=== PATIENT | female | born 2005 | race Caucasian/White ===

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

== ENCOUNTER 2024-01-12 08:12 | Outpatient (RCR) | payer BC, SELFPAY ==
[2024-01-12] MEDS: RHO(D) IMMUNE GLOBULIN 300 MCG/2 ML SYRINGE IM (12:27)
== END 2024-04-11 23:59 | disposition home or self-care (01) ==
LOC: ANHLAB 08:12
PROVIDERS: PCP Internal Medicine; Visit Provider Obstetrics & Gynecology
DX: O36.0130 Maternal care for anti-D [Rh] antibodies, third trimester, not applicable or unspecified (principal); Z29.13 Encounter for prophylactic Rho(D) immune globulin; Z3A.00 Weeks of gestation of pregnancy not specified
CPT/HCPCS: 36415; 85461; 86850; 86900; 86901; 90384; 96372; J2790

== ENCOUNTER 2024-02-21 10:32 | Outpatient (CLI) | payer BC, SELFPAY ==
[2024-02-21 11:10] VITALS: BP 124/68; PULSE 117; RESP 18; TEMP 36.9
[2024-02-21 11:15] VITALS: BP 124/68; PULSE 117
--- NOTE | 2024-02-21 11:29 | PC.NURSE ---
Chay Cates [facility] informed of this 23 wk pt with c/o leakage of fluid at 0800 this am. Pt did state she has had intercourse in the last 24 hrs- didn't ask her to be any more specific with the time. ROM plus was negative. FHT's reactive with 10 beat accels at 23 wks. No contractions. No vaginal bleeding. OK to discharge to home.
[2024-02-21 11:44] LABS: OBXCEM ROM Plus Negative (Negative)
== END 2024-02-21 11:32 | disposition home or self-care (01) ==
LOC: ANHOBOP 11:28 → ANHOBPP 11:29
PROVIDERS: Advanced Practice Midwife; PCP Internal Medicine; Visit Provider Obstetrics & Gynecology
DX: O42.90 Premature rupture of membranes, unspecified as to length of time between rupture and onset of labor, unspecified weeks of gestation (principal); Z3A.00 Weeks of gestation of pregnancy not specified
CPT/HCPCS: 59025; 84112; 99199

== ENCOUNTER 2024-03-30 13:17 | Observation (INO) | payer BC, SELFPAY ==
--- NOTE | ~2024-03-30 | US_ITS ---
EXAMINATION: US OB limited DATE: 03/30/2024 14:40 INDICATION: Placenta check . TECHNIQUE: Real-time ultrasound of the pelvis was performed. COMPARISON: None. FINDINGS: There is a single living fetus in vertex presentation, longitudinal lie. The placenta is posterior, 10.3 cm from the cervix. heart rate is 161 bpm. The deepest vertical amniotic fluid pocket mackenzie urement is 6.1 cm. Biophysical profile performed by the technologist: breathing (30 sec sustained breathing in 30 minutes): 2 out of 2. movement (3 gross body movements in 30 minutes: 2 out of 2. tone (one episode of wtalvlc-cayttfvus-xkkimgc limb movement): 2 out of 2. Amniotic fluid pocket (2 cm): 2 out of 2. Total score: 8 out of 8. IMPRESSION: Single living fetus in vertex presentation. heart rate 161 bpm. Placenta is well distant from the cervix. DVP 6.1 cm. Reviewed, dictated and finalized at location K. ICULTURIST
[2024-03-30 13:42] VITALS: BP 117/78; PULSE 99
[2024-03-30 13:46] VITALS: BP 104/78; PULSE 86
[2024-03-30 14:01] VITALS: BP 121/70; PULSE 86
[2024-03-30 14:07] VITALS: BMI 25.0
--- NOTE | 2024-03-30 14:08 | LDADM ---
This patient, Jennifer Marie, was admitted to OB Post 115 on 03/30/24 at 13:17. Plans for labor, pain management and were discussed with patient. Patient/family oriented to hospital policies and general routines including ID bracelet, bed and alarms, visiting hours, pain management, procedures, bathroom and other care routines, personal items, smoking policy, room service/diet and guest tray routines, infant security routines, and visiting hours. Patient/Family are encouraged to report perceived risks to care and to ask questions if they do not understand what they are told or what they should do. See OBIX for further documentation.
[2024-03-30 14:11] VITALS: BP 117/78; PULSE 86
--- NOTE | 2024-03-30 14:55 | PC.NURSE ---
Patient admitted for observation with complaints of vaginal bleeding since 1000 this morning. Patient states she had a small amount of bright red blood when she wiped after voiding but did not notice any blood while voiding. Patient denies any cramping or pain. MD notified of patient's complaint and verbal orders were received to obtain an NST, ultrasound for placenta check, and cervical exam. NST reactive and cervix was found to be closed. No blood on glove after cervical exam and patient states she has not had anymore since this morning. Patient state she did have intercourse last night. Patient is up on her feet most of the day at work as well. Waiting ultrasound results to notify provider.
--- NOTE | 2024-03-30 15:04 | PC.NURSE ---
Spoke with Dr. Pizarro at 1504 on telephone. Notified MD of reactive tracing, ultrasound findings, and cervical exam. Notified MD patient has not had anymore bleeding since the original smear this morning. MD gave verbal orders to discharge patient to home. Patient agrees with plan of care and has no questions at this time.
--- NOTE | 2024-04-29 18:13 | PM.OBTRLD ---
OB - Triage/Final Diagnosis Visit Information Comments/Additional reasons for admission: I have assessed the risk for this patient, Jennifer Marie, and determined that she would benefit from observation care. Final Diagnosis (1) Vaginal bleeding during : Code(s): O46.90 - Antepartum hemorrhage, unspecified, unspecified trimester Status: Acute
== END 2024-03-30 15:12 | disposition home or self-care (01) ==
PROVIDERS: Admitting Provider Obstetrics & Gynecology; PCP Internal Medicine; Visit Provider Obstetrics & Gynecology
DX: O46.93 Antepartum hemorrhage, unspecified, third trimester (principal); Z3A.28 28 weeks gestation of pregnancy
CPT/HCPCS: 59025; 76815; G0378; G0379

== ENCOUNTER 2024-04-02 14:28 | Outpatient (RCR) | payer BC, SELFPAY ==
[2024-04-03] MEDS: RHO(D) IMMUNE GLOBULIN 300 MCG/2 ML SYRINGE IM (13:18)
== END 2024-07-01 23:59 | disposition home or self-care (01) ==
LOC: ANHLAB 14:28
PROVIDERS: PCP Internal Medicine; Visit Provider Obstetrics & Gynecology
DX: O36.0130 Maternal care for anti-D [Rh] antibodies, third trimester, not applicable or unspecified (principal); Z3A.00 Weeks of gestation of pregnancy not specified; O46.92 Antepartum hemorrhage, unspecified, second trimester
CPT/HCPCS: 36415; 85461; 86850; 86880; 86900; 86901; 86902; 90384; 96372; J2790

== ENCOUNTER 2024-06-11 13:28 | Inpatient (IN) | payer BC, SELFPAY ==
[2024-06-11] VITALS (101 sets, daily range): BP systolic 99–150; BP diastolic 45–124; PULSE 101–211; TEMP 36.6–36.8; O2SAT 93–100; BMI 28.0
[2024-06-11 14:29] LABS: Basophils Percent Auto 0.3 % (0.2-1.2); Eosinophils Percent Auto 0.3 % (0-4.4); Hematocrit 33.8 % (37.0-47.0); Hemoglobin 11.2 g/dL (12.0-15.0); Immature Granulocyte Absolute 0.12 K/mm3 (0.00-0.031); Immature Granulocyte Percent A 1.1 % (0-0.5); Lymphocytes Absolute Auto 1.56 K/mm3 (0.9-3.2); Lymphocytes Percent Auto 14.9 % (18.3-44.2); Mean Corpuscular HGB Conc 33.1 g/dl (32-36); Mean Corpuscular Hemoglobin 29.7 pg (26-34); Mean Corpuscular Volume 89.7 fl (80-100); Mean Platelet Volume 11.2 fl (7.4-10.4); Monocytes Absolute Auto 0.6 K/mm3 (0.1-0.6); Monocytes Percent Auto 6.1 % (2.6-8.5); Neutrophils Absolute Auto 8.1 K/mm3 (1.3-6.7); Neutrophils Percent Auto 77.3 % (45.5-73.1); Platelet Count Result 245 k/mm3 (150-375); Red Blood Count 3.77 M/mm3 (4.2-5.4); Red Cell Distribution Width 13.8 % (11.5-14.5); White Blood Count 10.5 K/mm3 (4.5-10.0)
[2024-06-11 14:37] LABS: Alanine Aminotransferase 14 U/L (6-35); Albumin Level 3.8 g/dL (3.5-5.1); Alkaline Phosphatase 213 U/L (38-126); Anion Gap 11 mmol/L (4-12); Aspartate Amino Transferase 20 U/L (14-36); Bilirubin,Total 0.4 mg/dL (0.2-1.3); Blood Urea Nitrogen 12 mg/dL (7-17); Calcium 8.7 mg/dL (8.4-10.2); Carbon Dioxide 19 mmol/L (22-30); Chloride 105 mmol/L (98-107); Estimated CRCL calculation 142 ml/min; Estimated Glomerular Filt Rate > 60; Glucose 108 mg/dL (65-110); Potassium 3.9 mmol/L (3.4-5.0); Sodium 135 mmol/L (137-145); Uric Acid 4.9 mg/dL (2.5-7.5)
[2024-06-11] MEDS: AMPICILLIN 2 GM/NS 100 ML 2 GM/100 ML BAG IVPB (14:50)
[2024-06-11] MEDS: LACTATED RINGERS 1,000 ML 125 ML IV CONT ×2 (14:50→17:41)
[2024-06-11] MEDS: OXYTOCIN 30 UNITS/NS 500 ML 30 UNITS/500 ML BAG IV CONT (14:51)
[2024-06-11 14:56] LABS: Rapid Plasma Reagin Non-Reactive (NonReactive)
[2024-06-11 15:17] LABS: HIV 1/2 Ab P24 Ag Result Negative (Negative)
--- NOTE | 2024-06-11 17:11 | WPDANESEPP ---
Anes - Eval Pre Procedure Date/Time: 06/11/24 17:11 Pre Op Diagnosis: IOL Patient Data Age: 19 Gender: F Height: 1.65 m Weight: 76.5 kg Last Vital Signs Temp 98 F 06/11/24 15:00 Pulse 112 H 06/11/24 17:01 BP 120/59 L 06/11/24 17:01 O2 Del Method Room Air 06/11/24 14:02 Allergies Allergy/AdvReac Type Severity Reaction Status Date / Time No Known Allergies Allergy Verified 05/28/24 08:21 Home Medications ?Medication ?Instructions ?Recorded ?Confirmed ?Type vit no.95-ferrous 1 tablet PO DAILY 02/21/24 05/28/24 History fumarate 28 mg-folic acid 800 mcg tablet () Laboratory Tests 06/11/24 13:47 WBC 10.5 H K/mm3 (4.5-10.0) RBC 3.77 L M/mm3 (4.2-5.4) Hgb 11.2 L g/dL (12.0-15.0) Hct 33.8 L % (37.0-47.0) MCV 89.7 fl (80-100) MCH 29.7 pg (26-34) MCHC 33.1 g/dl (32-36) RDW 13.8 % (11.5-14.5) Plt Count 245 k/mm3 (150-375) MPV 11.2 H fl (7.4-10.4) Immature Gran % (Auto) 1.1 H % (0-0.5) Neut % (Auto) 77.3 H % (45.5-73.1) Lymph % (Auto) 14.9 L % (18.3-44.2) [place] % (Auto) 6.1 % (2.6-8.5) Eos % (Auto) 0.3 % (0-4.4) Baso % (Auto) 0.3 % (0.2-1.2) Lymph # (Auto) 1.56 K/mm3 (0.9-3.2) [place] # (Auto) 0.6 K/mm3 (0.1-0.6) Eos # (Auto) 0.0 K/mm3 (0-0.3) Baso # (Auto) 0.0 K/mm3 (0.0-0.1) Abs Immat Gran (auto) 0.12 H K/mm3 (0.00-0.031) Absolute Neuts (auto) 8.1 H K/mm3 (1.3-6.7) Absolute Nucleated RBC 0.000 K/mm3 (0.0-0.012) Nucleated RBC % 0.0 % (0.0-0.2) Sodium 135 L mmol/L (137-145) Potassium 3.9 mmol/L (3.4-5.0) Chloride 105 mmol/L (98-107) Carbon Dioxide 19 L mmol/L (22-30) Anion Gap 11 mmol/L (4-12) BUN 12 mg/dL (7-17) Creatinine 0.54 L mg/dL (0.7-1.0) Estim Creat Clear Calc 142 ml/min Estimated GFR > 60 (59 - ) Glucose 108 mg/dL (65-110) Uric Acid 4.9 mg/dL (2.5-7.5) Calcium 8.7 mg/dL (8.4-10.2) Total Bilirubin 0.4 mg/dL (0.2-1.3) AST 20 U/L (14-36) ALT 14 U/L (6-35) Alkaline Phosphatase 213 H U/L (38-126) Total Protein 7.0 g/dL (6.3-8.2) Albumin 3.8 g/dL (3.5-5.1) RPR Non-reactive (NonReactive) HIV 1&2 Ab/P24 Ag 4thGn Negative (Negative) Blood Type A Negative Antibody Screen Positive Antibody Identification Passive Due to RH Imm Glob Antigen Identification Cancelled LETICIA, IgG Interpret Neg LETICIA, Poly Interpret Not Performed LETICIA, Complement Interp Pending Patient hx anesthesia problems: none Family hx anesthesia problems: none Results Review: All pre-operative results and documents have been reviewed as part of the pre-operative evaluation. [facility] Past Medical History Medical History and not yet delivered Overweight (BMI 25.0-29.9) Family History Family History Father Cardiac arrhythmia Grandparent Breast cancer Social History Social History Smoking status: Never smoker Substance use: never Do You Feel Safe in your Home?: Yes Lack of Transportation: No Lack of Food: Never True Current Housing: I Have Housing Concerned About Future Housing: No Difficulty Paying Gas/Electric Bills: No Difficulty Paying for Meds: No Currently Unemployed: No Education: Grade School Difficulty w/ Childcare or Family Care: No Spiritual care concerns: No Exam Day of Procedure 06/11/24 17:11 Patient weight: overweight
--- NOTE | 2024-06-11 17:42 | PM.IMHP ---
H&P: HPI History of Present Illness Date/Time: 06/11/24 17:42 Chief Complaint: gestational hypertension Narrative: Patient is a 19 year old who presents for medical induction of labor for gestational hypertension. She was seen in the office for routine visit today and met criteria for gestational hypertension. She denies headaches, vision changes, chest pain, dyspnea, RUQ pain or epigastric pain. Her has been overall uncomplicated otherwise. Review of Systems Review of Systems: All systems reviewed & are unremarkable except as noted in HPI and below PMFSH Past Medical History Medical History and not yet delivered Overweight (BMI 25.0-29.9) Family History Family History Father Cardiac arrhythmia Grandparent Breast cancer Social History Social History Smoking status: Never smoker Substance use: never Do You Feel Safe in your Home?: Yes Lack of Transportation: No Lack of Food: Never True Current Housing: I Have Housing Concerned About Future Housing: No Difficulty Paying Gas/Electric Bills: No Difficulty Paying for Meds: No Currently Unemployed: No Education: Grade School Difficulty w/ Childcare or Family Care: No Spiritual care concerns: No Meds Home Medications and Allergies Home Medications ?Medication ?Instructions ?Recorded ?Confirmed ?Type vit no.95-ferrous 1 tablet PO DAILY 02/21/24 05/28/24 History fumarate 28 mg-folic acid 800 mcg tablet () Allergies Allergy/AdvReac Type Severity Reaction Status Date / Time No Known Allergies Allergy Verified 05/28/24 08:21 Vital Signs Vital Signs - 24 hr 06/11/24 13:43 06/11/24 13:46 06/11/24 14:02 Temperature Pulse Rate 129 H 134 H Blood Pressure 134/93 H 137/89 Pulse Oximetry Oxygen Delivery Room Air 06/11/24 14:31 06/11/24 14:46 06/11/24 15:00 Temperature 98 F Pulse Rate 125 H 132 H Blood Pressure 130/71 128/80 Pulse Oximetry Oxygen Delivery 06/11/24 15:31 06/11/24 16:02 06/11/24 17:01 Temperature Pulse Rate 113 H 111 H 112 H Blood Pressure 136/72 123/67 120/59 L Pulse Oximetry Oxygen Delivery 06/11/24 17:13 06/11/24 17:15 06/11/24 17:16 Temperature Pulse Rate 119 H 124 H Blood Pressure 134/74 133/70 Pulse Oximetry 93 Oxygen Delivery 06/11/24 17:18 06/11/24 17:20 06/11/24 17:21 Temperature Pulse Rate 130 H 129 H Blood Pressure 141/82 H 129/80 Pulse Oximetry 100 Oxygen Delivery 06/11/24 17:23 06/11/24 17:24 06/11/24 17:26 Temperature Pulse Rate 116 H 114 H Blood Pressure 146/80 H 133/69 Pulse Oximetry 100 Oxygen Delivery 06/11/24 17:27 06/11/24 17:28 06/11/24 17:29 Temperature Pulse Rate 117 H 126 H Blood Pressure 134/56 L 125/86 Pulse Oximetry 100 Oxygen Delivery 06/11/24 17:31 06/11/24 17:33 06/11/24 17:34 Temperature Pulse Rate 104 H 118 H Blood Pressure 123/47 L 99/52 L Pulse Oximetry 100 Oxygen Delivery 06/11/24 17:36 06/11/24 17:38 06/11/24 17:41 Temperature Pulse Rate 119 H 136 H 136 H Blood Pressure 125/69 139/74 109/71 Pulse Oximetry 100 Oxygen Delivery Exam Const: General: comfortable and no acute distress HENMT: Mouth: Yes moist mucous membranes Resp: Effort & Inspection: normal respiratory effort Cardio: Rate: regular rate : Other: SVE 4/60/-2, AROM of clear fluid Extrem: General: normal to inspection Psych: Mental Status: mental status grossly normal H&P: Results Labs Labs: Short CBC 06/11/24 Range/Units 13:47 WBC 10.5 H (4.5-10.0) K/mm3 Hgb 11.2 L (12.0-15.0) g/dL Hct 33.8 L (37.0-47.0) % Plt Count 245 (150-375) k/mm3 BMP 06/11/24 13:47 Sodium 135 L Potassium 3.9 Chloride 105 Carbon Dioxide 19 L BUN 12 Creatinine 0.54 L Glucose 108 Calcium 8.7 Liver Function 06/11/24 Range/Units 13:47 Total Bilirubin 0.4 (0.2-1.3) mg/dL AST 20 (14-36) U/L ALT 14 (6-35) U/L Alkaline Phosphatase 213 H (38-126) U/L Albumin 3.8 (3.5-5.1) g/dL Assessment and Plan Assessment and plan (1) Gestational hypertension: Code(s): O13.9 - Gestational [-induced] hypertension without significant proteinuria, unspecified trimester Status: Acute Assessment and Plan: - asymptomatic - BP elevated in office, meeting criteria for gHTN today - labs wnl - recommend MIL for gHTN; pitocin per protocol, AROM of clear fluid
[2024-06-11] MEDS: AMPICILLIN 1 GM/NS 50 ML 1 GM/50 ML BAG IVPB (18:41)
[2024-06-11] MEDS: SODIUM CHLORIDE 0.9% IV 300 ML 600 ML I-UTERINE (20:30)
--- NOTE | 2024-06-11 21:52 | PM.OBPRVD ---
OB - Vaginal Delivery Note Procedure Delivery date: 06/11/24 Events: Gestational Hypertension Intrapartal Events: Decelerations and Non-Reassuring Status Induction method: AROM and Per Pitocin Protocol Delivery monitor: External FHT and Internal Uterine Route of delivery: Episiotomy description: None Laceration Description: None Specimen: No Quantitative Blood Loss (ml): 75 Anesthesia type: Epidural Disposition: Floor Narrative: CNM called at home pt 9 cm, on arrival FHR deceleration noted x 8 minutes, FHR 60 pt, complete +2, Dr. Pizarro called for kiwi placement. discussed vacuum delivery with pt including risk, maternal risk, risk of , pt consented to placement. Kiwi placed and pt pushed with contraction. 1 contraction 3 pushes, no pop offs,with descent and then delivery of head. pressure released and cord around neck x 1 reduced, rest of the baby delivered without difficulty.apgars 9,9, mother and baby doing well in stable condition, skin to skin. Baby Date of : 06/11/24 Time of : 21:42 Gestational Age by Date: 36 gender: Male Weight (pounds): 6 Weight (ounces): 5 presentation: vertex position: Left Occiput Anterior Placenta delivery description: Spontaneous Cord Vessel Description: Nuchal Cord and Clamped/Cut (x1) score one minute: 9 score five minutes: 9
[2024-06-11] MEDS: OXYTOCIN 30 UNITS/NS 500 ML 30 UNITS/500 ML BAG 125 UNITS IV CONT (22:13)
[2024-06-11] MEDS: WITCH HAZEL 40 PADS 1 PAD TOPICAL (23:03)
[2024-06-11] MEDS: BENZOCAINE 20% AER SPR (*SP) 56 GM CAN 1 SPRAY TOPICAL (23:03)
[2024-06-12] MEDS: ACETAMINOPHEN 325 MG TABLET 650 MG PO (01:18)
[2024-06-12 03:59] VITALS: BP 117/61; PULSE 92
[2024-06-12 04:00] VITALS: TEMP 36.4
[2024-06-12 07:04] LABS: Hemoglobin 9.9 g/dL (12.0-15.0)
--- NOTE | 2024-06-12 07:40 | PC.NURSE ---
This patient, Jennifer Marie, was received from first floor L&D/PP on 06/12/24 at 0740. Patient/family oriented to unit policies and routines.
[2024-06-12 08:30] VITALS: BP 120/85; PULSE 104; RESP 18; TEMP 36.6; O2SAT 100
--- NOTE | 2024-06-12 09:30 | PC.NURSE ---
[id number] Introductions were made, then consulted with patient to assess needs related to . Mother led the conversation with her?plans to feed?her infant and the?experience so far. Per mother baby had a few good breast feedings but she needed help with latching. RN encouraged understanding of the benefits of skin to skin (demonstrating unwrapping and placing upright on her chest), stimulating with massage touch, changing positions to encourage wakefulness, how to watch for early feeding cues, responsive feeding, feeding on demand (aiming for 8-12 times in 24 hours, about every 2-3 hours), milk production, building/maintaining a milk supply, duration of feeding, signs of adequate intake/output and how to record on the feeding sheet. Mother works well with her infant with encouragement and education. Reviewed positioning and ear, shoulder, hip alignment, supporting the breast to facilitate a deep latch, asymmetrical latch (off-center), leading with the chin with a big, open, wide gape and body close to mother. Infant latched optimally to the [right] breast in [football] position. Education given to the mother of how to visualize the suckling (with good rocking jaw motion), swallows (dropping of the lower jaw) and how to listen for drinking at the breast (the ka sound). was unable to maintain latch and mother asked for a formula bottle right away, mother was very tired and wished to no longer try and latch baby. Per mother, she wants to pump and bottle feed when she goes home and wishes to not put baby to breast at this time. We reviewed comfort measures of healing with a warm, wet washcloth to rinse breast, then leave open to air-dry, good handwashing when or touching the breast/nipples to prevent infection. Per mother she would like to use the hospital breast pump and may need an insurance pump before her discharge, she is going to call her insurance and make sure that one is covered. At this time mother is going to give infant a formula bottle and call out when she is ready to set up the breast pump. Resources used for education were facilitated with the [visual educational handouts/ tool/mom and baby guide], Inpatient/outpatient resources provided with business card, feeding sheet, name written on the communication board, and the mom/baby guide. Parents voiced understanding of information, demonstrated learning and will call if there is a request for assistance. Reported to the Primary RN.
--- NOTE | 2024-06-12 09:33 | PC.NURSE ---
On 06/12/24, the [facility] students, Sheng and Keiry, provided care and completed [facility] documentation on this patient. I have reviewed the student's documentation and agree with the findings.
--- NOTE | 2024-06-12 09:36 | P.PNOB_ITS ---
OB - PN: Subj Subjective Date/time seen: 06/12/24 09:36 Patient comments: no complaints, pain well controlled, incisional pain, tolerating diet and flatus present OB - PN: Obj Data Labs 06/12/24 06:54 06/11/24 13:47 Labs: Laboratory Results - last 24 hr 06/11/24 06/12/24 13:47 06:54 WBC 10.5 H RBC 3.77 L Hgb 11.2 L 9.9 L Hct 33.8 L 30.0 L MCV 89.7 MCH 29.7 MCHC 33.1 RDW 13.8 Plt Count 245 MPV 11.2 H Immature Gran % (Auto) 1.1 H Neut % (Auto) 77.3 H Lymph % (Auto) 14.9 L [place] % (Auto) 6.1 Eos % (Auto) 0.3 Baso % (Auto) 0.3 Lymph # (Auto) 1.56 [place] # (Auto) 0.6 Eos # (Auto) 0.0 Baso # (Auto) 0.0 Abs Immat Gran (auto) 0.12 H Absolute Neuts (auto) 8.1 H Absolute Nucleated RBC 0.000 Nucleated RBC % 0.0 Sodium 135 L Potassium 3.9 Chloride 105 Carbon Dioxide 19 L Anion Gap 11 BUN 12 Creatinine 0.54 L Estim Creat Clear Calc 142 Estimated GFR > 60 Glucose 108 Uric Acid 4.9 Calcium 8.7 Total Bilirubin 0.4 AST 20 ALT 14 Alkaline Phosphatase 213 H Total Protein 7.0 Albumin 3.8 RPR Non-reactive HIV 1&2 Ab/P24 Ag 4thGn Negative Blood Type A Negative Antibody Screen Positive Antibody Identification Passive Due to RH Imm Glob Antigen Identification Cancelled LETICIA, IgG Interpret Neg LETICIA, Poly Interpret Not Performed LETICIA, Complement Interp Negative OB - PN A/P Plan day: 1 Plan: routine care Comments: No problems, routine care Time Spent With Patient Time: Total time spent is greater than 50% in coordination of care (as documented) at patient's floor/unit and/or counseling patient: Exam 2 Const: General: comfortable, no acute distress and alert Resp: Effort & Inspection: normal respiratory effort Auscultation: no crackles, no rales and no rhonchi Cardio: Rate: regular rate Heart sounds: no click, no murmurs and no rubs GI: Inspection: non-distended GI Palp: No Tenderness to palpation present (GI) Auscultation: normal bowel sounds Other: Incision - CDI Extrem: General: normal to inspection, no pedal edema and no calf tenderness
[2024-06-12] MEDS: MULTIVIT/MIN/PREN/FOL AC/IRON TABLET 1 TAB PO (10:28)
[2024-06-12 11:10] VITALS: BP 112/60; PULSE 97; RESP 20; TEMP 36.1; O2SAT 99
--- NOTE | 2024-06-12 13:50 | PC.NURSE ---
On 06/12/24, the [facility] student,vital signs that were taken, provided care and completed [facility] documentation on this patient. I have reviewed the student's documentation and agree with the findings.
--- NOTE | 2024-06-12 14:13 | WPDANLDPN2 ---
Anes-Prog Note L&D Date/Time: 06/12/24 14:13 Comfortable throughout: labor and delivery Neuraxial method: epidural Epidural/Spinal procedure site: tender (tender at the site) Neuro status: Neuro function grossly intact. Cardiovascular status: normal Respiratory status: normal Airway patency: baseline Mental status: baseline Post-Op hydration status: normal Vital Signs: Last Vital Signs Temp 36.1 C L 06/12/24 11:10 Pulse 97 06/12/24 11:10 Resp 20 06/12/24 11:10 BP 112/60 06/12/24 11:10 Pulse Ox 99 06/12/24 11:10 O2 Del Method Room Air 06/11/24 14:02 Pain score (VAS): 2/10 I/O: Intake & Output 06/11/24 06/12/24 06/12/24 23:59 07:59 15:59 Intake Total 1000 Output Total 75 300 Balance 925 -300 Post-procedural complaints: none Patient feedback: Patient satisfied with anesthetic care.
--- NOTE | 2024-06-12 15:28 | PC.NURSE ---
1300. Breast pump provided due to moms request. Mom explains that it is her current intent to pump and bottle feed at this time. Mom encouraged to call if she would like to bring baby back to the breast at anytime before going home. Instructions given on cleaning, care, usage, that there should be no pain, pumping schedule for milk production, collection, and storage of human milk. Patient was assessed for correct placement, flange size, to pump for comfort and nipple stretching/stimulation for adequate milk production every 3 hours (8 times in 24 hours) 1-2 times at night. Parents are encouraged to record the pumping schedule on the feeding sheet.?Mother voiced understanding of the education shared along with mom/baby guide and the pump measurement, flange fit handout for additional resource information. Mom encouraged to pump for a total of 15 min. Explained to mom breastmilk is good for 4 hours at room temperature. Reported to the Primary RN. 1330. Mom called out for assistance with feeding infant the breastmilk she pumped. She pumped a total of 2 ml. Breastmilk given to with bottle slow flow nipple. Mom encouraged to supplement infant with formula after to finish infants feeding. 1430. Mom reports she could not get infant to take additional formula after the 2ml of breastmilk at 1330.Mom requested help supplementing with bottle. Reviewed paced bottle feeding techniques with mom at this time as well as burping technique. Infant appears very jittery at this time. Blood glucose level checked. Results were 42 & rechecked at a level of 39. Reported to the infants primary RN Caridad Jernigan at this time. Per the hypoglycemia protocol, infant was given 12 cc formula and also given 1.5 cc of glucose gel at this time. Explained to mom Infants blood glucose will be rechecked in 30 min per the protocol.
[2024-06-12] MEDS: POLYSACCHARIDE IRON COMPLEX 150 MG CAPSULE PO (18:00)
[2024-06-12] MEDS: DOCUSATE SODIUM 100 MG CAPSULE PO (18:00)
[2024-06-12 22:20] VITALS: BP 111/76; PULSE 94; RESP 18; TEMP 36.9; O2SAT 100
[2024-06-12] MEDS: IBUPROFEN 600 MG TABLET PO (22:32)
--- OUTSIDE RECORDS SUMMARY | 2024-06-13 01:19 | XMS_ITS | Referral Summary ---
Author Organization [facility] Address [address] [place] [address] Care Team Providers Care Fashion Photographer Name Role Phone No, Physician Primary Care Provider [phone] Allergies No known active allergies Medications No known medications Active Problems Problem Noted Date Diagnosed Date SVT (supraventricular tachycardia) 06/02/2020 Overview (06/02/2020): Added automatically from request for surgery [id number] Fracture of proximal end of humerus 05/11/2016 Social History Tobacco Use Types Packs/Day Years Used Date Smoking Tobacco: Never Smokeless Tobacco: Never Alcohol Use Standard Drinks/Week Comments Never 0 (1 standard drink = 0.6 oz pur e alcohol) AUDIT-C Answer Date Recorded Q1: How often do you have a drink containing alc ohol? Never 04/13/2020 Average Number of Drinks Not on file 020 Frequency of Binge Drinking Not on file 03/22 Personal Safety Answer Date Recorded Getting School Help Needed Not on file 07/21 Comments Unknown Sex and Gender Information Value Date Recorded Sex Assigned at Not on file Legal Sex Female 12:53 PM [employer] Gender Identity Not on file Sexual Orientation Not on file Last Filed Vital Signs Vital Sign Reading Time Taken Comments Blood Pressure 137/88 01/18/2022 2:14 AM CDT Pulse 100 01/18/2022 2:14 AM CDT Temperature 36.9 ??C (98.4 ??F) 01/18/2022 2:14 AM CD T Respiratory Rate 17 01/18/2022 2:14 AM CDT Oxygen Saturation 99% 01/18/2022 2:14 AM CDT Inhaled Oxygen Concentration - - Weight 63.9 kg (140 lb 14 oz) 01/18/2022 2:14 AM CDT Height 165.1 cm (5' 5 ) 01/18/2022 2:14 AM CDT Body Mass Index 23.44 01/18/2022 2:14 AM CDT Plan of Treatment Not on file Procedures Procedure Name Priority Date/Time Associated Diagnosis Comments N. GONORRHOEAE/C. TRACHOMATIS AMPLIFICATION STAT 01/20/2021 9:35 PM CDT from Last 3 Months or Most Recently Relevant to Health Maintenance Results * N. gonorrhoeae/C. trachomatis Amplification Urine (01/20/2021 9:35 PM CDT) C. trachomatis Not Detected Not Detected DILLNA SCHMIDT Comment:Testing performed by : [facility], [address] [place] [address]., [id number] N. gonorrhoeae Not Detected Not Detected DILLAN SCHMIDT Comment: Testing performed by the [facility]. This assay detects Chlamydia trachomatis and Neisseria gonorrhoeae by nucleic acid amplification testing (NAAT). This test is approved by the [place] Food and Drug Administration and the performance characteristics have been verified by the laboratory. The performance characteristics of this test have not been evaluated in women or individuals less than 16 years of age. Testing performed by: [facility], [address] [place] [address], [place]., [address] Urine (None) 01/20/2021 9:35 PM CDT 01/23/2021 8:53 PM CDT us Mayra Marie MD LAB MICROBIOLOGY - GENE RAL ORDERABLES Final Result DILLAN [address] [facility] Department [place] [address] from Last 3 Months or Most Recently Relevant to Health Maintenance Insurance IDPA IDPA IDPA IDPA IDPA Advance Directives For more information, please contact: [phone] * Full Code (Latest Code Status on File) Date Activated Date Inactivated Comments 07/02/2020 12:55 PM 07/02/2020 9:58 PM * Full Code Date Activated Date Inactivated Comments 07/02/2020 9:05 AM 07/02/2020 12:55 PM Care Teams Fashion Photographer Relationship Specialty Start Date End Date No, Physician PCP - General 04/13/20
--- OUTSIDE RECORDS SUMMARY | 2024-06-13 01:19 | XMS_ITS | Clinical Summary ---
Author Organization [facility] Address [address] [place] [address] Care Team Providers Care Pari Mutuel Ticket Cashier Name Role Phone No, Physician Primary Care Provider [phone] Allergies No known active allergies Medications No known medications Active Problems Problem Noted Date Diagnosed Date SVT (supraventricular tachycardia) 06/02/2020 Overview (06/02/2020): Added automatically from request for surgery [id number] Fracture of proximal end of humerus 05/11/2016 Surgical History Surgery Date Site/Laterality Comments TONSILECTOMY, ADENOIDECTOMY, BILATERAL MYRINGOTOMY AND TUBES ADENOIDECTOMY Medical History Medical History Date Comments Bipolar 1 disorder, depressed (CMS/HCC) ([facility]) Anxiety Hypothyroid Family History Medical History Relation Name Comments Unknown Family History Father No Known Problems Mother Heart disease Other Relation Name Status Comments Father Mother Other Social History Tobacco Use Types Packs/Day Years [...] on file 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 Gender Identity Not on file Sexual Orientation Not on file Obstetrics History Last Filed Vital Signs Vital Sign Reading [...] 01/18/2022 2:14 AM CDT Plan of Treatment Health Maintenance Due Date Last Done Comments Cervical Cancer Screening 2003 Depression Screening 2003 Hepatitis C Screening 2003 DTaP/Tdap/Td Vaccine (6 - Tdap) 2014 10/21/2007, 08/09/2006, 02/15/2004, Additional history exists HPV Vaccines (1 - 3-dose series) 2018 Meningococcal B Vaccine (1 of 2 - Patient Seeks Protection) 2019 Regular Well Visit/Exam 18-64 2021 Chlamydia and Gonorrhea (GC/CT) Screening 01/20/2022 01/20/2021 Influenza Vaccine (#1) 2024 04/27/2020, 2004 Pneumococcal vaccine <65 Completed 005, 02/15/2004, 2003, Additional history exists Varicella Vaccines Completed 10/21/2007, 06/20/2004 Meningococcal Vaccine Aged Out No cande garry eligible based on patient's age to complete this topic Procedures Procedure Name Priority Date/Time Associated Diagnosis Comments N. GONORRHOEAE/C. TRACHOMATIS AMPLIFICATION STAT 01/20/2021 9:35 PM CDT from Last 3 Months or Most Recently Relevant to Health Maintenance Results * N. gonorrhoeae/C. trachomatis Amplification Urine (01/20/2021 9:35 PM CDT) C. trachomatis Not Detected Not Detected DILLAN SCHMIDT Comment:Testing performed by : [facility], [address] [place] [address]., [id number] N. gonorrhoeae Not Detected Not Detected DILLAN SCHMIDT Comment: Testing performed by the [facility]. This assay detects Chlamydia trachomatis and Neisseria gonorrhoeae by nucleic acid amplification testing (NAAT). This test is approved by the [facility] Food and Drug Administration and the performance characteristics have been verified by the laboratory. The performance characteristics of this test have not been evaluated in women or individuals less than 16 years of age. Testing performed by: [facility], [address] [place]., [address] Urine (None) 01/20/2021 9:35 PM CDT 01/23/2021 8:53 PM CDT Mayra Marie MD LAB MICROBIOLOGY - [facility] ORDERABLES Final Result DILLAN SCHMIDT [address] [facility] Department [place] [address] from Last 3 Months or Most Recently Relevant to Health Maintenance Insurance [facility] IDPA IDPA IDPA Advance Directives For more information, please contact: [phone] * Full Code (Latest Code Status on File) Date Activated Date Inactivated Comments 07/02/2020 12:55 PM 07/02/2020 9:58 PM * Full Code Date Activated Date Inactivated Comments 07/02/2020 9:05 AM 07/02/2020 12:55 PM Care Teams Pari Mutuel Ticket Cashier Relationship Specialty Start Date End Date No, Physician PCP - General 04/13/20
--- OUTSIDE RECORDS SUMMARY | 2024-06-13 01:19 | XMS_ITS | Encounter Summary ---
Author Organization [facility] Address [address] [place] [address] Phone Care Team Providers Care Hairpiece Stylist Name Role Phone No, Physician Primary Care Provider [phone] Encounter Details Date Type Department Care Team (Late st Contact Info) Description 04/13/2020 Documentation [facility] Pediatric Cardiology [facility] 2[address] [place] [address] [place] [address] Jonathan Swain MD [address] [facility] [address] [place] [address] Social History Tobacco Use Types Packs/Day Years [...] of Binge Drinking Not on file 03/22 Comments Unknown Sex and Gender Information Value Date Recorded Sex Assigned at Not on file 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
[2024-06-13 08:00] VITALS: BP 112/82; PULSE 99; RESP 16; RESP 18; TEMP 36.7; O2SAT 98
[2024-06-13] MEDS: MULTIVIT/MIN/PREN/FOL AC/IRON TABLET 1 TAB PO (08:01)
[2024-06-13] MEDS: DOCUSATE SODIUM 100 MG CAPSULE PO ×2 (08:01→16:39)
[2024-06-13] MEDS: POLYSACCHARIDE IRON COMPLEX 150 MG CAPSULE PO ×2 (08:01→16:39)
--- NOTE | 2024-06-13 08:08 | P.PNOB_ITS ---
OB - PN: Subj Subjective Date/time seen: 06/13/24 08:08 Interval history: day 2 IOL for gestational htn continue to monitor for bp's, sxs OB - PN: Obj Data Labs 06/12/24 06:54 06/11/24 13:47 Labs: Laboratory Results - last 24 hr 06/12/24 12:12 Blood Type A Negative Antibody Screen TNP Screen Negative Baby's Blood Type A pos Baby's LETICIA Positive Doses of RhIg Required 1 OB - PN A/P Plan day: 2 Plan: routine care Time Spent With Patient Time: Total time spent is greater than 50% in coordination of care (as documented) at patient's floor/unit and/or counseling patient: Review of Systems 2 Review of Systems: All systems reviewed & are unremarkable except as noted in HPI and below Exam 2 Const: General: cooperative and healthy appearing Resp: Effort & Inspection: normal respiratory effort Cardio: Rate: regular rate Back/Spine/Pelvis: Back: no CVA tenderness Skin: General skin exam: normal color Neuro: General: patient oriented x3
--- NOTE | 2024-06-13 10:18 | PC.NURSE ---
[id number] Met with mother to see how pumping is going, per mother, she only used the breast pump 1x last night before going to sleep. Patient was already assessed for correct placement and flange size yesterday, and was reminded to pump for comfort and nipple stretching/stimulation for adequate milk production every 3 hours (8 times in 24 hours) 1-2 times at night in order to protect her milk supply. Baby is currently on IV fluids in the Level II nursery. Parents are encouraged to record the pumping schedule on the feeding sheet. Mother voiced understanding of the education shared along with mom/baby guide and the pump measurement, flange fit handout for additional resource information. Reported to the Primary RN. [phone] Mother called out for assistance assembling the breast pump parts, demonstration given and mother returned demonstration as well. She was able to pump 11mls in her 15 minute pumping session. Mother to label and time the breast milk and she is taking the milk down to the Level II nursery to see her baby.
[2024-06-13] MEDS: RHO(D) IMMUNE GLOBULIN 300 MCG/2 ML SYRINGE IM (11:13)
[2024-06-13 20:10] VITALS: BP 122/67; PULSE 108; RESP 16; TEMP 36.8; O2SAT 99
[2024-06-13 23:45] VITALS: BP 116/72; PULSE 77; RESP 14; TEMP 36.8; O2SAT 100
[2024-06-14] MEDS: IBUPROFEN 600 MG TABLET PO (00:54)
[2024-06-14 07:40] VITALS: BP 114/73; PULSE 94; RESP 16; TEMP 36.3; O2SAT 100
--- NOTE | 2024-06-14 08:26 | P.PNOB_ITS ---
OB - PN: Subj Subjective Date/time seen: 06/14/24 08:26 Interval history: day 2 IOL for gestational htn continue to monitor for bp's, sxs Patient comments: no complaints, pain well controlled and tolerating diet OB - PN: Obj Data Labs 06/12/24 06:54 06/11/24 13:47 Labs: Laboratory Results - last 24 hr 06/12/24 12:12 Blood Type A Negative Antibody Screen TNP Screen Negative Baby's Blood Type A pos Baby's LETICIA Positive Doses of RhIg Required 1 OB - PN A/P Plan day: 3 Plan: routine care and discharge home Comments: Gestational hypertension -resolving, stable blood pressures. Time Spent With Patient Time: Total time spent is greater than 50% in coordination of care (as documented) at patient's floor/unit and/or counseling patient: Exam 2 Const: General: comfortable and no acute distress Resp: Effort & Inspection: normal respiratory effort Auscultation: no rales, no rhonchi and no wheezes Cardio: Rate: regular rate Heart sounds: no click, no murmurs and no rubs GI: GI Palp: Yes Soft to palpation and No Tenderness to palpation present (GI) Auscultation: normal bowel sounds Extrem: General: normal to inspection, no pedal edema and no calf tenderness
--- NOTE | 2024-06-14 08:31 | PM.OBDSVD ---
DS: Admitting Diagnosis Discharge Date June 14, 2023 Admitting Diagnosis term DS: Discharge Diagnosis Discharge Diagnosis (1) Post term , delivered: Code(s): O48.0 - Post-term Status: Acute OB - DS: Summary OB Procedures : None OB Procedures Intrapartum: Spontaneous Vag Delivery OB Procedures: : None Peripartum Data Laceration Description: None Episiotomy description: None Time Spent with Patient Time attestation: Total time spent providing and/or coordinating discharge services: DS: Data Data Completed and Pending Labs on day of discharge: Labs from last 24 hours 06/12/24 12:12 Blood Type A Negative Antibody Screen TNP Screen Negative Baby's Blood Type A pos Baby's LETICIA Positive Doses of RhIg Required 1 Discharge Plan Discharge Discharging Clinician: Lisandro Pizarro Patient Disposition: Home, Self-Care Activity: pelvic rest Diet: regular Patient Instructions: Antibiotic Form Patient Language: Belarusian Stand Alone Forms: General Discharge Information Follow-up/Referrals: Lisandro Pizarro MD [Physician] - Discharge Medications: Continued PNV [id number] [] 28 mg iron- 800 mcg Tablet 1 tablet PO DAILY Date of admission: 06/11/24 13:28 Primary Care Provider: Belarusian,Maximo Alvarez Admitting Provider: Magdi Begum Attending physician on admission: Magdi Begum Condition: Stable
--- NOTE | 2024-06-14 09:05 | PC.NURSE ---
Mom is still pumping because baby is in level 2 with unstable blood sugars. Baby is now being transferred to the NICU. Mom is in the nursery with baby at this time. Encourage consistent pumping and breast stimulation on discharge.
--- NOTE | 2024-06-14 11:58 | PC.NURSE ---
1040-Pt's infant transferred. Pt has follow up appt scheduled with Dr. Begum on 06-17-24.
== END 2024-06-14 10:40 | disposition home or self-care (01) | DRG 807 ==
LOC: ANHOB2 06-14 08:33 → ANHOBPP 06-18 13:00 → ANHLDR 06-18 13:00
PROVIDERS: Advanced Practice Midwife; Admitting Provider Obstetrics & Gynecology; PCP Internal Medicine; Visit Provider Obstetrics & Gynecology
DX: O13.4 Gestational [pregnancy-induced] hypertension without significant proteinuria, complicating childbirth (principal); Z37.0 Single live birth; Z3A.38 38 weeks gestation of pregnancy; O69.81X0 Labor and delivery complicated by cord around neck, without compression, not applicable or unspecified; O99.824 Streptococcus B carrier state complicating childbirth; O36.8330 Maternal care for abnormalities of the fetal heart rate or rhythm, third trimester, not applicable or unspecified
CPT/HCPCS: 36415; 80053; 84550; 85014; 85018; 85025; 85461; 86592; 86703; 86850; 86880; 86900; 86901; 90384; A9270; G0432; J0290; J2590; J2790; J2795; J7030; J7120